=== PATIENT | female | born 1965 | race Caucasian/White ===

== ENCOUNTER 2025-06-13 14:38 | Outpatient (AMB) | payer BC, SELFPAY ==
--- NOTE | 2025-06-13 14:49 | A.OFFVIS_ITS ---
Vital Signs 06/13/25 14:54 Height 5 ft 6 in Intake Visit Reasons: 6 weeks Allergies No Known Allergies Allergy (Verified 06/13/25 14:53) Medication List - Last Reconciled 06/13/25 by Melinda Covarrubias CNP atorvastatin 10 mg PO DAILY estradiol transdermal levothyroxine (Synthroid) 88 mcg PO DAILY sumatriptan succinate 100 mg PO PRN topiramate 25 mg PO BEDTIME HPI Comments Details: 59 years old woman with migraine without aura. Headaches were a bit better with topiramate 25mg. Headaches were less often, about 1-2x/week now. Pain was often to temples, throbbing or pressure-type, and occasional photophobia. No nausea or vomiting. Sumatriptan as needed helped. Sleep was still not so good, [facility] Medical History (Updated 06/13/25 @ 14:54 by Melinda Covarrubias CNP) Migraine without aura Review of Systems Const Denies chills, Denies daytime sleepiness, Reports difficulty sleeping, Denies fatigue, Denies fever(s), Denies frequent falls, Reports headache(s), Denies increased appetite, Denies poor appetite, Denies snoring, Denies weakness, Denies weight gain and Denies weight loss Eyes Denies loss of vision ENT Denies vertigo, Denies dizziness, Reports headache(s) and Denies neck pain Card Denies chest pain at rest, Denies chest pain with activity, Denies syncope, Denies leg edema, Denies palpitations, Denies dyspnea and Denies dyspnea on exertion Resp Denies cough, Denies dyspnea, Denies dyspnea on exertion and Denies snoring GI Denies abdominal pain, Denies constipation, Denies heartburn, Denies diarrhea and Denies nausea Denies urinary frequency, Denies urinary incontinence and Denies urinary urgency Musc Denies abnormal gait, Denies back pain, Denies myalgias, Denies arthralgias, Denies neck pain, Denies numbness and Denies tingling Neuro Denies abnormal gait, Denies vertigo, Denies dizziness, Denies syncope, Denies frequent falls, Reports headache(s), Denies lack of coordination, Denies loss of vision, Denies memory loss, Denies numbness, Denies Other visual disturbances, Denies restless legs, Denies seizure-like activity, Denies tingling, Denies paresthesias, Denies tremor(s) and Denies weakness Psych Denies anxiety, Denies depression, Denies auditory hallucinations, Denies memory loss and Denies visual hallucinations Endo Denies fatigue and Denies palpitations Physical Exam Const Other: General Appearance:? normal, in no acute distress. Skin:? no rashes, no significant birthmarks. Heart:? S1, S2 normal, no murmurs. Lungs:? clear anteriorly and posteriorly. Extremities:? no edema. Psych:? alert, oriented, cognitive function intact, cooperative with exam. Neuro Other: Mental Status:?Normal attention, orientation, memory and affect.? Cranial Nerves:?Pupils are equal, round and reactive to light. External occular muscles are intact. Visual kemp are full. Face is symmetrical. Facial sensations are normal. Tongue is midline. Palate elevates symmetrically. Shoulder shrugging is normal. Hearing to bedside conversation is normal. Motor Examination:?Normal muscle tone, bulk and strength,?Deep tendon reflexes are 2+,?Plantars are flexor.? Sensory Exam:?....? Coordination:?No ataxia,?no titubation.? Gait Exam: Within normal limits. Cerebellar Signs:?Pwmstf-hw-ictm and cqim-rn-jlkv is normal.? Extrapyramidal System:?No tremor, rigidity with normal facial expressions.? Pronator Drift:?Not present.? Involuntary Movements:?No tremors seen.? Speech:?Normal.? Assessment & Plan Assessment & Plan (1) Migraine without aura: Code(s): G43.009 - Migraine without aura, not intractable, without status migrainosus Category: Medical Qualifiers: Status migrainosus presence: without status migrainosus Intractability: not intractable Qualified Code(s): G43.009 - Migraine without aura, not intractable, without status migrainosus Plan: Increase topiramate 50mg 1 tablet at bedtime Continue sumatriptan 100mg 1 tablet as needed for migraines Medications: New topiramate 50 mg PO BEDTIME 90 tabs 1RF 90 days Discontinued topiramate Discontinued Reason: Order 25 mg PO BEDTIME Coding Level of Care Code Est Pt Level 4 (01019) Diagnoses Migraine without aura and without status migrainosus, not intractable G43.009 Status migrainosus presence: without status migrainosus Intractability: not intractable
--- OUTSIDE RECORDS SUMMARY | 2025-06-13 15:51 | XMS_ITS ---
Author Name [facility] Organization Unknown Encounters Encounter Type Encounter Reason Primary Diagnosis Location Date Ambulatory [facility] 09/20/2024 Care Team Organization Name Specialty Phone Email Start Date End Da te [facility] 2024
== END 2025-06-13 15:03 | disposition home or self-care (01) ==
LOC: HO.HSM 14:38
PROVIDERS: PCP Internal Medicine; Visit Provider Registered Nurse
DX: G43.009 Migraine without aura, not intractable, without status migrainosus (principal)
CPT/HCPCS: 99214

== ENCOUNTER 2025-09-12 13:02 | Outpatient (AMB) | payer BC, SELFPAY ==
--- OUTSIDE RECORDS SUMMARY | 2024-05-31 05:00 | XMS_ITS ---
Author Organization [facility], Jody Address [address] [facility] [address] [place] [address] Care Team Providers Care Jewel Grinder Name Role Phone Migration, Provider Unavailable Unavailable REASON FOR VISIT CPX Encounters Encounter Location Date Provider Diagnosis Ltac, Located Within [facility], [address] [place] [phone] 05/31/2024 Provider Migration Plan Of Treatment Next Appt Details Provider Name:Catrina Drake Kristynmitchel jose luis, 02/07/2026 10:30:00 AM, [address] [address], [place], [address], [phone] Progress Notes * YVONNE EMMANUEL ADOB:[birth year] (59 yo F)Acc No.[id number]:05/31/2024 Progress Notes Patient: Bernardino BAEZA YVONNE Nohemy Provider: Pepito gibbs Migration :1965 A ge:58 Y S ex:Female Date:05/31/2024 Address:[address] [place], [place] [id number] Subjective: * Chief Complaints: * C PX * Ocular Surgical History: Objective: Vision Examination: * Electronic signature of Prov ider Migration on 09/12/2025 at 04:50 PM EDT Sign off status: Pending * Provider: Pepito gibbs Migration Date: 0 05/31/2024 Generated for Glenroy [place]/Sandeep/Jerzysmitting on: 04:50 PM EDT
--- OUTSIDE RECORDS SUMMARY | 2024-08-04 06:30 | XMS_ITS ---
Author Organization [facility], Jody Address [address] [facility] [address] [place] [address] Care Team Providers Care Manager Program Name Role Phone Migration, Provider Unavailable Unavailable REASON FOR VISIT CPX Encounters Encounter Location Date Provider Diagnosis [facility], [address] [place] [phone] 08/04/2024 Provider Migration Plan Of Treatment Next Appt Details Provider Name:Catrina Drake Kristynmitchel jose luis, 02/07/2026 10:30:00 AM, [address] [address], [place], [address], [phone] Progress Notes * YVONNE EMMANUEL ADOB:[birth year] (59 yo F)Acc No.[id number]:08/04/2024 Progress Notes Patient: Bernardino BAEZA YVONNE Nohemy Provider: Pepito gibbs Migration :1965 A ge:58 Y S ex:Female Date:08/04/2024 Address:[address] [place], [place] [phone] Subjective: * Chief Complaints: * C PX * Ocular Surgical History: Objective: Vision Examination: * Electronic signature of Prov ider Migration on 09/12/2025 at 04:49 PM EDT Sign off status: Pending * Provider: Pepito gibbs Migration Date: 0 08/04/2024 Generated for Glenroy csott/Sandeep/eTyaniquesmitting on: 04:49 PM EDT
--- OUTSIDE RECORDS SUMMARY | 2025-02-01 04:30 | XMS_ITS ---
Author Organization [facility], [place]ody Address [address] [facility] [address] [place] [address] Care Team Providers Care Wet Room Worker Name Role Phone Migration, Provider Unavailable Unavailable REASON FOR VISIT Follow-up Appt Encounters Encounter Location Date Provider Diagnosis [facility], [address] [place] [phone] 02/01/2025 Provider Migration Plan Of Treatment Next Appt Details Provider Name:Catrina Vidal Simonsmitchel jose luis, 02/07/2026 10:30:00 AM, [address] [facility] Suite [facility], [place], [address], [phone] Progress Notes * YVONNE EMMANUEL ADOB:[birth year] (59 yo F)Acc No.[id number]:02/01/2025 Progress Notes Patient: Bernardino BAEZA YVONNE Nohemy Provider: Pepito gibbs Migration :1965 A ge:59 Y S ex:Female Date:02/01/2025 Address:[address] [place], [place] [phone] Subjective: * Chief Complaints: * F ollow-up Appt * Ocular Surgical History: Objective: Vision Examination: * Electronic signature of Prov ider Migration on 09/12/2025 at 04:51 PM EDT Sign off status: Pending * Provider: Pepito gibbs Migration Date: 0 02/01/2025 Generated for Glenroy scott/Sandeep/eTransmitting on: 1 04:51 PM EDT
--- OUTSIDE RECORDS SUMMARY | 2025-02-16 05:15 | XMS_ITS ---
Author Organization [facility], Jody Address [address] [facility] [address] [place] [address] Care Team Providers Care Transliterator Name Role Phone Migration, Provider Unavailable Unavailable REASON FOR VISIT Follow-up Appt Encounters Encounter Location Date Provider Diagnosis [facility], [address] [place] [phone] 02/16/2025 Provider Migration Plan Of Treatment Next Appt Details Provider Name:Catrina Vidal Simonsmitchel jose luis, 02/07/2026 10:30:00 AM, [address] [facility] Suite [facility], [place], [address], [phone] Progress Notes * YVONNE EMMANUEL ADOB:[birth year] (59 yo F)Acc No.[id number]:02/16/2025 Progress Notes Patient: Bernardino BAEZA YVONNE Nohemy Provider: Pepito gibbs Migration :1965 A ge:59 Y S ex:Female Date:02/16/2025 Address:[address] [place], [place] [phone] Subjective: * Chief Complaints: * F ollow-up Appt * Ocular Surgical History: Objective: Vision Examination: * Electronic signature of Prov ider Migration on 09/12/2025 at 04:50 PM EDT Sign off status: Pending * Provider: Pepito gibbs Migration Date: 0 02/16/2025 Generated for [place]roy scott/Sandeep/eTransmitting on: 1 04:50 PM EDT
--- OUTSIDE RECORDS SUMMARY | 2025-02-16 05:15 | XMS_ITS ---
Author Organization [facility], Jody Address [address] [facility] [address] [place] [address] Care Team Providers Care Audio Visual Collections Coordinator Name Role Phone Herrera Hyatt Unavailable [phone] REASON FOR VISIT Follow-up Appt Encounters Encounter Location Date Provider Diagnosis [facility], [address] [place] [phone] 02/16/2025 Herrera Hyatt Plan Of Treatment Next Appt Details Provider Name:Catrina amaya, 02/07/2026 10:30:00 AM, [address] [place] [address], Suite [facility], [place], [address], [phone] Progress Notes * YVONNE EMMANUEL ADOB:[birth year] (59 yo F)Acc No.[id number]:02/16/2025 Progress Notes Patient: YVONNE KNIGHT Provider: Hugo LE :1965 A ge:59 Y S ex:Female Date:02/16/2025 Address:[address] [place], [place] [id number] Subjective: * Chief Complaints: * F ollow-up Appt * Ocular Surgical History: Objective: Vision Examination: * Electronic signature of Lalit Hyatt PA-C on 09/12/2025 at 04:51 PM EDT Sign off status: Pending * Provider: Hugo LE Date: 0 02/16/2025 Generated for Printi ng/Faxing/eTransmitting on: 1 04:51 PM EDT
--- NOTE | 2025-09-12 13:06 | MHC.OFFVIS ---
Intake Visit Reasons: 3 mnts f/u for Migraine Allergies No Known Allergies Allergy (Verified 09/12/25 13:06) Medication List - Last Reconciled 09/12/25 by Melinda Covarrubias CNP atorvastatin 10 mg PO DAILY estradiol transdermal levothyroxine (Synthroid) 88 mcg PO DAILY sumatriptan succinate 100 mg PO PRN topiramate 50 mg PO BEDTIME 90 days HPI Comments Details: 59-year-old woman with migraine without aura. She was doing okay. Migraines were happening about 1-2x/week and were not as severe. Sumatriptan as needed helped. Sleep was getting better. [facility] Medical History (Updated 09/12/25 @ 13:08 by Melinda Covarrubias CNP) Graves disease Migraine without aura Review of Systems Const Denies chills, Denies daytime sleepiness, Reports difficulty sleeping, Denies fatigue, Denies fever(s), Denies frequent falls, Reports headache(s), Denies increased appetite, Denies poor appetite, Denies snoring, Denies weakness, Denies weight gain and Denies weight loss Eyes Denies loss of vision ENT Denies vertigo, Denies dizziness, Reports headache(s) and Denies neck pain Card Denies chest pain at rest, Denies chest pain with activity, Denies syncope, Denies leg edema, Denies palpitations, Denies dyspnea and Denies dyspnea on exertion Resp Denies cough, Denies dyspnea, Denies dyspnea on exertion and Denies snoring GI Denies abdominal pain, Denies constipation, Denies heartburn, Denies diarrhea and Denies nausea Denies urinary frequency, Denies urinary incontinence and Denies urinary urgency Musc Denies abnormal gait, Denies back pain, Denies myalgias, Denies arthralgias, Denies neck pain, Denies numbness and Denies tingling Neuro Denies abnormal gait, Denies vertigo, Denies dizziness, Denies syncope, Denies frequent falls, Reports headache(s), Denies lack of coordination, Denies loss of vision, Denies memory loss, Denies numbness, Denies Other visual disturbances, Denies restless legs, Denies seizure-like activity, Denies tingling, Denies paresthesias, Denies tremor(s) and Denies weakness Psych Denies anxiety, Denies depression, Denies auditory hallucinations, Denies memory loss and Denies visual hallucinations Endo Denies fatigue and Denies palpitations Physical Exam Const Other: General Appearance:? normal, in no acute distress. Skin:? no rashes, no significant birthmarks. Heart:? S1, S2 normal, no murmurs. Lungs:? clear anteriorly and posteriorly. Extremities:? no edema. Psych:? alert, oriented, cognitive function intact, cooperative with exam. Neuro Other: Mental Status:?Normal attention, orientation, memory and affect.? Cranial Nerves:?Pupils are equal, round and reactive to light. External occular muscles are intact. Visual kemp are full. Face is symmetrical. Facial sensations are normal. Tongue is midline. Palate elevates symmetrically. Shoulder shrugging is normal. Hearing to bedside conversation is normal. Sensory Exam:?....? Coordination:?No ataxia,?no titubation.? Gait Exam: Within normal limits. Cerebellar Signs:?Hcbely-qm-vkwm is okay.? Extrapyramidal System:?No tremor, rigidity with normal facial expressions.? Pronator Drift:?Not present.? Involuntary Movements:?No tremors seen.? Speech:?Normal.? Assessment & Plan Assessment & Plan (1) Migraine without aura: Code(s): G43.009 - Migraine without aura, not intractable, without status migrainosus Category: Medical Qualifiers: Status migrainosus presence: without status migrainosus Intractability: not intractable Qualified Code(s): G43.009 - Migraine without aura, not intractable, without status migrainosus Plan: Continue topiramate 50mg 1 tablet at bedtime. Continue sumatriptan 100mg 1 tablet as needed for migraines. Plan Meds tried: sumatriptan, topiramate Medications: New sumatriptan succinate take 1 tab at onset of headache; if no relief, may repeat 1 tab after at least 2 hrs; max = 2 tabs/24 hrs PO 10 tabs 5RF 30 days Discontinued sumatriptan succinate Discontinued Reason: Order 100 mg PO PRN Coding Level of Care Code Est Pt Level 4 (40715) Diagnoses Migraine without aura and without status migrainosus, not intractable G43.009 Status migrainosus presence: without status migrainosus Intractability: not intractable
--- OUTSIDE RECORDS SUMMARY | 2025-09-12 16:50 | XMS_ITS | Patient Health Record ---
Author Organization [facility], Jody Address [address] [facility] [address] [place] [address] Care Team Providers Care University Counselor Name Role Phone Herrera Hyatt Unavailable [phone] Migration, Provider Unavailable Unavailable Catrina Banerjee Unavailable [phone] Reason For Referral No Information Medications Medication SIG (Take, Route, Frequency, Duration) Notes Start Date End Date Status Synthroid 88 MCG Tablet 1 tablet in the morning on an empty stomach Orally Once a day Active Atorvastatin Calcium 10 MG Tablet 1 tablet Orally Once a day Active Levothyroxine Sodium 88 MCG Tablet 1 capsule in the morning on an empty stomach Orally Once a day; Duration: 90 days insurance requests levothyroxine 08/21/2025 Active Estradiol 0.0375 MG/24HR Patch Weekly 1 patch to skin Transdermal Active Topamax 100 MG Tablet 1 tablet Orally Once a day Active SUMAtriptan Active Social History Section Notes: alcohol-on ocassions No tobacco, caffeine or drug use Vital Signs Heart Rate 58 /min 08/21/2025 height- 5ft 6in Respiratory Rate 19 /min 08/21/2025 height- 5ft 6in Oximetry 97 % 08/21/2025 height- 5ft 6in Blood pressure diastolic 77 mm Hg 08/21/2025 hei ght- 5ft 6in Weight-kg 69.76 kg 08/21/2025 height- 5ft 6in Blood pressure systolic 131 mm Hg 08/21/2025 heig ht- 5ft 6in Weight 153.8 lbs 08/21/2025 height- 5ft 6in Encounters Encounter Location Date Provider Diagnosis [facility], [place] [address] [address] 02/01/[address] [facility], [place] [address] [address] 02/16/2025 Provider Migration [facility] [place] [address] [facility] [address] [place] [address] 02/16/2025 Herrera Hyatt [facility], [address] [place] [phone] 08/21/2025 Catrina Banerjee Medication management Z79.899 [facility], [address] [address] 08/24/2025 Catrinanaldo Banerjee Medication refill Z76.0 [facility], [place] [address] [facility] [address] [place] [phone] 05/08/2025 Herrera Hyatt Assessments Encounter Date Diagnosis (ICD Code) Assessment Notes Treatment Notes Treatment Clinical Notes Section Notes 08/21/2025 Medication management (ICD-10 - Z79.899) Patient into the office today for general f/u of labs. She was also looking for a bone scan. We discussed the age appropriateness and will hold off for now as she does not have any risk factors at this time. We reviewed her labs and will re-order them today for review in January. she also has some mental health concerns and we referred her for counseling to [facility] in [place] We schedule her for a physical in January She reported the insurance company advised her that they will not cover her synthroid any longer so we ordered her Levothyroxine 88mg. Spoke to pharmacy and was advised it is an equal dosage order 08/24/2025 Medication refill (ICD-10 - Z76.0) telemedicine for medication refill Plan Of Treatment Next Appt Details Provider Name:Catrina Drake Kristynmitchel jose luis, 02/07/2026 10:30:00 AM, [address] [facility], [address] [facility], [place], [address], [phone] Insurance Providers Payer Name Payer Address Payer Phone Subscriber Number Group Number Insured Name Patient Relationship to Insured Coverage Start Date Coverage End Date [employer] [address] [place] [phone] [id number] YVONNE EMMANUEL Self - patient is the insured
== END 2025-09-12 13:15 | disposition home or self-care (01) ==
LOC: HO.HSM 13:03
PROVIDERS: PCP Internal Medicine; Visit Provider Registered Nurse
DX: G43.009 Migraine without aura, not intractable, without status migrainosus (principal)
CPT/HCPCS: 99214